=== PATIENT | female | born 1940 | race Caucasian/White ===

== ENCOUNTER 2017-06-06 14:32 | Emergency (ER) | payer OTHER ==
[~2017-06-06] VITALS: Ht 160 cm; Wt 113.4 kg
[2017-06-06 14:45] VITALS: Ht 160 cm; Wt 113.4 kg
[2017-06-06 15:41] VITALS: BP 171/76
== END 2017-06-06 15:41 | disposition home or self-care (01) ==
LOC: ED 14:32
DX: M79.672 Pain in left foot (principal); I10 Essential (primary) hypertension; E11.9 Type 2 diabetes mellitus without complications
CPT/HCPCS: J1885